=== PATIENT | female | born 1960 | race Caucasian/White ===

== ENCOUNTER 2018-02-28 12:59 | Emergency (ER) | payer OTHER ==
--- NOTE | 2018-02-28 13:34 | EDPHY ---
H & P Stated Complaint: Right Sided Facial Twitching for 24 hours - Personal History Current Tetanus Diphtheria and Acellular Pertussis (TDAP): Yes Tetanus Vaccine Date: Less than 10 years - Medical/Surgical History Hx Asthma: No Hx Chronic Respiratory Disease: No Hx Diabetes: No Hx Cardiac Disease: No Hx Renal Disease: No Hx Cirrhosis: No Hx Alcoholism: No Hx HIV/AIDS: No Hx Splenectomy or Spleen Trauma: No Other PMH: Chronic back pain, migraines, 3x left hip surgeries, 2x surgeries left arm, 2x neck surgeries (fusion), lower back sx; - Social History Smoking Status: Former smoker Time Seen by Provider: 02/28/18 13:27 HPI/ROS: CHIEF COMPLAINT: Right facial numbness HISTORY OF PRESENT ILLNESS: 57-year-old female who the complaining of right facial numbness, paresthesia since last evening with development of non thunderclap right temporal occipital pain today. Contact her PCP who recommend she go to the ER for evaluation of possible CVA. Denies: Gait instability, aphasia, dysphagia, odynophagia, diplopia, visual acuity changes, major minor head or neck trauma or manipulation, neck pain, fever, chills, recent illness, chest pain, dyspnea, trauma, discoordination, change in taste or smell PRIMARY CARE PROVIDER:Gerald REVIEW OF SYSTEMS: 10 systems reviewed and negative with the exception of the elements mentioned in the history of present illness PAST MEDICAL & SURGICAL HISTORY: Chronic back pain. Migraine headaches. Back surgery SOCIAL HISTORY: Nonsmoker. No drug use. PHYSICAL EXAM (Prior to examination, patient consented to physical exam, hands were washed and my usual and customary physical exam procedures followed) 1) GENERAL: Well-developed, well-nourished, alert and oriented. Appears to be in no acute distress. 2) HEAD: Normocephalic, atraumatic 3) HEENT: Pupils equal, round, reactive to light bilaterally. Sclera anicteric. No ptosis. Nasopharynx, oropharynx, clear, no lesions. Moist Mucous membranes. Tongue midline Ears bilaterally with normal tympanic membranes. 4) NECK: Full range of motion, no meningeal signs. No adenopathy 5) LUNGS: Clear auscultation bilaterally, no wheezes, no rhonchi, no retractions. 6) HEART: Regular rate and rhythm, no murmur, no heave, no gallop. 7) ABDOMEN: No guarding, no rebound, no focal tenderness, negative McBurney's, negative Velazquez's, negative Rovsing's, negative peritoneal sign, 8) MUSCULOSKELETAL: Moving all extremities, no focal areas of tenderness, no obvious trauma. No peripheral edema or discoloration. 9) BACK: No CVA tenderness, no midline vertebral tenderness, no fluctuance, no step-off, no obvious trauma, no visual or palpable abnormality. 10) SKIN: No rash, no petechiae. 11) Psychiatric: Patient is oriented X 3, there is no agitation. 12) NEURO: Awake, alert, and oriented to person, place and time. Decreased sensation to sharp and dull on the entirety of the right face. No facial droop. Symmetrical facial features. Answers questions appropriately. No ptosis. There were no obvious focal neurologic abnormalities. No cerebellar dysfunction. Cranial nerves 2 through to 12 intact. Normal steady gait. Upper and lower extremities bilaterally with strength 5 / 5, reflexes 2+. NIH score 0. DIFFERENTIAL DIAGNOSIS: In no particular order include but limited to peripheral etiology, central etiology, zoster, trigeminal neuralgia (Louann,Tasha Jacque) Constitutional: Initial Vital Signs Temperature (C) 36.7 C 02/28/18 13:03 Heart Rate 61 02/28/18 13:03 Respiratory Rate 18 02/28/18 13:03 Blood Pressure 112/79 02/28/18 13:03 O2 Sat (%) 94 02/28/18 13:03 O2 Delivery Mode Room Air Allergies/Adverse Reactions: sumatriptan [From Imitrex] Allergy (Severe, Verified 06/21/13 16:13) Vomiting sumatriptan succinate [From Imitrex] Allergy (Severe, Verified 06/21/13 16:13) Vomiting Home Medications: Medication Instructions Recorded ARIPiprazole [Abilify 5 mg (RX)] 5 mg PO DAILY 06/21/13 Escitalopram Oxalate [Lexapro] 20 mg PO DAILY 06/21/13 Ketorolac Tromethamine [Toradol 30 30 mg IM PRN PRN 06/21/13 mg/ml Inj (RX)] Levothyroxine [Synthroid 75 mcg 75 mcg PO DAILY06 06/21/13 (RX)] Liothyronine Sodium [Cytomel 25 12.5 mcg PO DAILY 06/21/13 mcg (RX)] buPROPion XL [Wellbutrin 150mg XL] 300 mg PO DAILY 06/21/13 clonazePAM [Clonazepam] 0.5 mg PO BID PRN 06/21/13 Hydrocodone/APAP 5/325 [Alsea 2 tab PO Q4 PRN 06/28/13 5/325 (RX)] Omeprazole [Prilosec 20 mg] 20 mg PO DAILY 06/28/13 Hydrocodone/APAP 5/325 [Alsea 1 - 2 tab PO Q4H PRN #10 tab 02/23/15 5/325] Oxycontin 02/23/15 Topamax 02/23/15 Medical Decision Making - Diagnostics Imaging Results: Imaging Impressions Brain MRI 02/28/18 13:57 Impression: Normal MRI of the brain. Results discussed with ERNST Blackman at 3:31 pm. Images reviewed myself (Tasha Lew) ED Course/Re-evaluation: 1:40 p.m. After evaluating the patient, she was noted to have a nonfocal exam but is noting new subjective facial paresthesias and numbness. Patient was also seen exam by Dr. Agusto Hayden in the ER. Recommended MRI of the brain. Indications risks benefits discussed with patient she consents. 3:50 p.m.: MRI brain interpreted by Dr. Ko is negative. 3:55 p.m.: Re-evaluation, patient is sleeping, states that she continues to experience a mild headache and continues to experience subjective paresthesias. I re-examined her including neurologic exam she remains with a nonfocal exam but does note decreased sensation to the right face particularly sharp and dull sensation is decreased on the right side of the face. We discussed possible etiologies including, but not limited to, migraine variant. Doubt CVA. Doubt malignancy. I have offered further analgesia. She would like to be discharged does request 2, Alsea tablets prior to discharge. This is her regular dosage for her chronic headaches prescribed by her pain management provider. Recommend follow up with neurology in given this follow-up information. Given usual and customary headache precautions instructions. Recommend follow up with neurology. (Tasha Lew) Other Provider: PHYSICIAN DOCUMENTATION: The patient was evaluated and managed by the Physician Senior Power Scheduler and myself. I have reviewed the chart and agree with the findings and plan of care as documented. In addition, I examined the patient myself at 1410. History confirmed as numbness on the right side of her face, history of migraines. Physical findings as follows: Fluent speech, some subjective numbness on the right side of her face but her face is symmetric including wrinkling her forehead and smiling, no ptosis. Plan to treat for migraine, more likely that then stroke. MRI without discussed and consented. I am the secondary supervising physician. (Agusto Hayden) - Data Points Laboratory Results: Laboratory Results 02/28/18 13:55 02/28/18 13:55 02/28/18 02/28/18 13:55 13:55 WBC 5.74 10^3/uL 10^3/uL (3.80-9.50) RBC 4.76 10^6/uL 10^6/uL (4.18-5.33) Hgb 14.4 g/dL g/dL (12.6-16.3) Hct 42.0 % % (38.0-47.0) MCV 88.2 fL fL (81.5-99.8) MCH 30.3 pg pg (27.9-34.1) MCHC 34.3 g/dL g/dL (32.4-36.7) RDW 13.2 % % (11.5-15.2) Plt Count 163 10^3/uL 10^3/uL (150-400) MPV 10.9 fL fL (8.7-11.7) Neut % (Auto) 57.7 % % (39.3-74.2) Lymph % (Auto) 34.7 % % (15.0-45.0) Bowie % (Auto) 5.4 % % (4.5-13.0) Eos % (Auto) 1.7 % % (0.6-7.6) Baso % (Auto) 0.3 % % (0.3-1.7) Nucleat RBC Rel Count 0.0 % % (0.0-0.2) Absolute Neuts (auto) 3.31 10^3/uL 10^3/uL (1.70-6.50) Absolute Lymphs (auto) 1.99 10^3/uL 10^3/uL (1.00-3.00) Absolute Monos (auto) 0.31 10^3/uL 10^3/uL (0.30-0.80) Absolute Eos (auto) 0.10 10^3/uL 10^3/uL (0.03-0.40) Absolute Basos (auto) 0.02 10^3/uL 10^3/uL (0.02-0.10) Absolute Nucleated RBC 0.00 10^3/uL 10^3/uL (0-0.01) Immature Gran % 0.2 % % (0.0-1.1) Immature Gran # 0.01 10^3/uL 10^3/uL (0.00-0.10) Sodium 140 mEq/L mEq/L (135-145) Potassium 3.8 mEq/L mEq/L (3.3-5.0) Chloride 112 mEq/L H mEq/L (97-110) Carbon Dioxide 19 mEq/l L mEq/l (22-31) Anion Gap 9 mEq/L mEq/L (8-16) BUN 20 mg/dL mg/dL (7-23) Creatinine 1.1 mg/dL H mg/dL (0.6-1.0) Estimated GFR 51 Glucose 113 mg/dL H mg/dL (70-100) Calcium 9.0 mg/dL mg/dL (8.5-10.4) Medications Given: Discontinued Medications Sodium Chloride (Ns) 1,000 mls @ 0 mls/hr IV ONCE ONE PRN Reason: Wide Open Stop: 02/28/18 13:58 Last Admin: 02/28/18 14:06 Dose: 1,000 mls Ketorolac Tromethamine (Toradol) 15 mg IVP EDNOW ONE Stop: 02/28/18 13:58 Last Admin: 02/28/18 14:05 Dose: 15 mg Lorazepam (Ativan Injection) 1 mg IVP EDNOW ONE Stop: 02/28/18 13:58 Last Admin: 02/28/18 14:05 Dose: 1 mg Departure - Departure Disposition: Home, Routine, Self-Care Clinical Impression: Facial paresthesia Condition: Good Instructions: Paresthesia (ED) Additional Instructions: RETURN TO THE ED IMMEDIATELY IF YOUR HEADACHE WORSENS, IF YOU DEVELOP A FEVER, NECK PAIN OR NECK STIFFNESS, OR IF YOU BECOME CONFUSED OR ABNORMALLY DROWSY. Referrals: Josefa Duarte MD [Primary Care Provider] - 1-2 days without fail Johnson Isabel MD [Medical Doctor] - 5-7 days, call for appt. NIH Stroke Scale Date of Exam: 02/28/18 Time of Exam: 13:34 Level of Consciousness: Alert LOC Questions: Answers Both LOC Commands: Performs Both Correctly Best Gaze: Normal Visual: No Visual Loss Facial Palsy: Normal Motor Arm-Left: No Drift Motor Arm-Right: No Drift Motor Leg-Left: No Drift Motor Leg-Right: No Drift Limb Ataxis: Absent Sensory: Normal Best Language: No Aphasia Dysarthria: Normal Extinction and Inattention (Neglect): No Abnormality NIH Scale Score: 0
[2018-02-28] MEDS ORDERED: KETOROLAC 15 MG/1 ML SDV IVP ONE (13:57)
[2018-02-28] MEDS ORDERED: LORazepam 2 MG/ML INJ IVP ONE (13:57)
[2018-02-28] MEDS ORDERED: NS 1,000 ML IV ONE (13:57)
[2018-02-28 14:03] LABS: PLATELET COUNT 163 10^3/uL (150-400)
[2018-02-28] MEDS ORDERED: GADOBUTROL 10 ML VIAL IVP ONE (15:00)
[2018-02-28] MEDS ORDERED: HYDROCODONE/APAP 10/325 TAB PO ONE (16:02)
[2018-02-28 16:09] VITALS: BP 108/78
== END 2018-02-28 16:29 | disposition home or self-care (01) ==
DX: R20.2 Paresthesia of skin (principal)
CPT/HCPCS: 96374; A9585; J1885; J2060

== ENCOUNTER → 2018-06-15 | Outpatient (CLI) | payer OTHER | LOC: FIMAGING 16:35 | PROVIDERS: ATTEND Physician Assistant Medical | DX: R05 Cough (principal) ==